=== PATIENT | male | born 1945 | race Caucasian/White ===

== ENCOUNTER → 2023-02-27 | Outpatient (CLI) | payer MEDICARE, OTHER ==
[~2023-02-27] MED LIST: CATHETER FLUSH 10 ML SYR IVP PRN; REGADENOSON 0.4 MG/5 ML SYR (LEXISCAN) IV ONE
[2023-02-27 13:16] VITALS: BP 152/75
--- NOTE | 2023-02-27 14:51 | Cardiology Stress Test Report ---
Stress Test Report Date of Procedure/Referring: Date of Procedure: Feb 27, 2023 PCP Doug Cerna DO Admitting Physician Admitting Physician: Attending Physician: Marta Cleveland MD Indications: CAD Baseline Heart Rate: 69 Baseline Blood Pressure: Blood Pressure Systolic: 152 Blood Pressure Diastolic: 75 Baseline Vitals Vital Signs Date Time Temp Pulse Resp B/P (MAP) Pulse Ox O2 Delivery O2 Flow Rate FiO2 02/27/23 13:16 69 152/75 (100) 98 Baseline EKG: Baseline EKG: RBBB Summary After explaining the procedure to the patient, he signed a consent and then brought to the stress nuclear laboratory. Patient received 0.4 mg Lexiscan for stress test, ECG, heart rate and blood pressure were monitored continuously. Resting and stress dose of radio tracer were injected, imaging was acquired and reviewed in short axis, horizontal long axis and vertical long axis views. TID: 1.07 SSS: 11 SDS: 6 EF: 64 Patient tolerated Lexiscan well Baseline right bundle branch block persisted during test Reversible ischemia involving the mid to apical inferolateral and anterolateral wall Normal left ventricular size, ejection fraction 64% Copy Copies To 1: DOUG CERNA BASHAR J MD Feb 27, 2023 14:51
== END ==
LOC: CARD 11:02
PROVIDERS: ATTEND Internal Medicine Cardiovascular Disease
DX: I25.10 Atherosclerotic heart disease of native coronary artery without angina pectoris (principal); I10 Essential (primary) hypertension
CPT/HCPCS: 78452; 93017; A9502; C8929; 93306

== ENCOUNTER 2023-03-13 07:00 | Day surgery (SDC) | payer MEDICARE, OTHER ==
[2023-03-13] VITALS (21 sets, daily range): BP systolic 137–186; BP diastolic 66–93
[~2023-03-13] VITALS: Ht 175.3 cm; Wt 70.0 kg
[2023-03-13] MEDS ORDERED: NS IV 1000 ML 1,000 ML IV SCH ×2 (07:15→10:15)
[2023-03-13] MEDS ORDERED: LIDOCAINE 1% INJ 20 ML VIAL ONE (07:15)
[2023-03-13] MEDS ORDERED: HEParin (CATH LAB) 2,000 ML IV ONE (07:15)
[2023-03-13] MEDS ORDERED: NS IV 1000 ML 1,000 ML ONE (07:15)
[2023-03-13 07:40] LABS: HEMATOCRIT 46 % (40-54); HEMOGLOBIN 15.5 g/dL (13.3-17.7); MEAN CORPUSCULAR HEMOGLOBIN 30 pg (25-34); MEAN CORPUSCULAR HGB CONC 34 g/dL (32-36); MEAN CORPUSCULAR VOLUME 88 fL (80-99); MEAN PLATELET VOLUME 9.6 fL (9.0-12.2); PLATELET COUNT 214 10^3/uL (130-400); WHITE BLOOD COUNT 6.2 10^3/uL (4.3-11.0)
--- NOTE | 2023-03-13 07:44 | Diagnostic Imaging Report ---
EXAMINATION: Chest radiograph TECHNIQUE: Portable AP view of the chest obtained HISTORY: Chest pain COMPARISON: None available. FINDINGS: Normal lung volume. No focal consolidation. No pleural effusion or pneumothorax. Cardiac silhouette and pulmonary vascularity are within normal limits. No acute osseous findings. IMPRESSION: No acute chest findings. Dictated by: Dictated on workstation # [id number]
[2023-03-13 07:51] LABS: BACTERIA,URINE NEGATIVE /HPF; BILIRUBIN,URINE NEGATIVE (NEGATIVE); CLARITY,URINE CLEAR; COLOR,URINE YELLOW; GLUCOSE, URINE (UA) 3+ (NEGATIVE); KETONES,URINE NEGATIVE (NEGATIVE); LEUKOCYTE ESTERASE ,URINE NEGATIVE (NEGATIVE); NITRITE,URINE NEGATIVE (NEGATIVE); PH,URINE 5.5 (5-9); PROTEIN,URINE 1+ (NEGATIVE)
[2023-03-13 07:58] LABS: INR 0.9 (0.8-1.4); PROTHROMBIN TIME PATIENT 12.5 SEC (12.2-14.7)
[2023-03-13 08:00] LABS: BILIRUBIN,TOTAL 0.5 MG/DL (0.1-1.0); CREATININE SERUM 0.86 MG/DL (0.60-1.30); POTASSIUM 3.8 MMOL/L (3.6-5.0); TOTAL PROTEIN 6.7 GM/DL (6.4-8.2)
[2023-03-13] MEDS ORDERED: LOSA25TA41 PO (08:20)
[2023-03-13] MEDS ORDERED: SILD25TA9 PO (08:20)
[2023-03-13] MEDS ORDERED: EMPA25TA PO (08:20)
[2023-03-13] MEDS ORDERED: TERB250T88 PO (08:20)
[2023-03-13] MEDS ORDERED: HYDR-700 PO (08:20)
[2023-03-13] MEDS ORDERED: ATOR10TA66 PO (08:20)
[2023-03-13] MEDS ORDERED: AMLO-250 PO (08:20)
[2023-03-13] MEDS ORDERED: MIDAZOLAM INJ 5 MG/5 ML VIAL ONE (08:31)
[2023-03-13] MEDS ORDERED: fentaNYL INJECTION 100 MCG/2 ML VIAL ONE ×2 (08:31→09:35)
--- NOTE | 2023-03-13 08:37 | Cardiac Procedure Note-CS/ASA ---
Pre-Procedure Note Pre-Op Procedure Note Date of Available H&P: Feb 25, 2023 Date H&P Reviewed: Mar 13, 2023 Time H&P Reviewed: 08:36 History & Physical: H&P Reviewed, Patient Examed, No changes noted Pre-Operative Diagnosis: CAD, PAD Moderate Sedation PreProcedure Time 08:36 ASA Score 3 Airway Lungs Heart ASA score ASA 1: a normal healthy patient ASA 2: a patient with a mild systemic disease (mid diabetes, controlled hypertension, obesity ASA 3: a patient with a severe systemic disease that limits activity (angina, COPD, prior Myocardial infarction) ASA 4: a patient with an incapacitating disease that is a constant threat to l gary (CHF, renal failure) ASA 5: a moribund patient not expected to survive 24 hrs. (ruptured aneurysm) ASA 6: a declared brain- patient whose organs are being harvested. For emergent operations, add the letter E after the classification Mallampati Classification Grade 3 Sedation Plan Analgesia, Amnesia, Plan communicated to team members, Discussed options with patient/fam, Discussed risks with patient/fam The patient is an appropriate candidate to undergo the planned procedure, sedation, and anesthesia. The patient immediately re-assessed prior to indication. JOE MONTILLA MD Mar 13, 2023 08:36
[2023-03-13] MEDS ORDERED: HEParin 1000 UNIT/ML (10ML VIAL) FOR BOLUS ONE (09:14)
[2023-03-13] MEDS ORDERED: MIDAZOLAM INJ 2 MG/2 ML VIAL ONE (09:38)
[2023-03-13] MEDS ORDERED: CLOPIDOGREL 300 MG TABLET PO ONE (10:12)
[2023-03-13] MEDS ORDERED: ASPIRIN 325 MG TABLET ONE (10:12)
[2023-03-13] MEDS ORDERED: PATIENT MAY USE OWN MEDS, ALL PO SCH (10:15)
[2023-03-13] MEDS ORDERED: PANT40TA2 PO (10:18)
[2023-03-13] MEDS ORDERED: CLOP75TA28 PO (10:18)
[2023-03-13] MEDS ORDERED: ASPI-1238 PO (10:18)
--- NOTE | 2023-03-13 10:19 | Discharge Inst-Post CATH ---
Discharge Inst-CATH/EP Problems Reviewed?: Yes Post Cardiac Cath/EP D/C Inst Follow Up/Plan Appointment with Dr. Cleveland's office in 2 to 4 weeks <b>CARDIAC CATH/EP PROCEDURE DISCHARGE INSTRUCTIONS</b> ACTIVITY * Go Home directly and rest. * Limit activity of the leg (or wrist if it was used) for 7 days including aer obics, swimming, jogging, bicycling, etc. * Restrict stair-climbing for 7 days if possible, if not, climb up with your non-cath leg, then bring together on the same step. * Avoid lifting, pushing, pulling or excessive movement of the affected extremi ty for 7 days. * Customary sexual activity may be resumed after 2 days-use caution not to use a position that strains or causes pain to the affected extremity. * No driving for 24 hours. * NO SMOKING. * Avoid straining for bowel movements for 7 days. * Gentle walking on level ground is allowed. * Returning to work will depend on the type of procedure and the results. Your doctor will discuss this with you. CALL YOUR DOCTOR FOR ANY OF THE FOLLOWING: *If bleeding from the puncture site occurs- Apply gentle pressure to site with clean cloth and call your doctor or EMS. * If a knot or lump forms under the skin, increases in size, or causes pain. * If bruising appears to be worsening or moving further down your leg instead of disappearing. * Temperature above 101 F. CARE OF YOUR GROIN INCISION; * Bruising or purple discoloration of the skin near the puncture site is common. * You may shower only, no bathtub bathing for 5 days. Be careful to avoid slipping as your leg may feel stiff. * If a closure device was used on your femoral artery, please see the attached guide regarding care of the device and your leg. * Leave dressing on FOR 24 hours. CARE OF YOUR WRIST INCISION; * Bruising or purple discoloration of the skin near the puncture site is common. * You may shower. * DO NOT submerge wrist. * Leave dressing on FOR 24 hours. JOE CLEVELAND MD Mar 13, 2023 10:19
--- NOTE | 2023-03-13 10:34 | Cardiac Cath Report ---
Cardiac Cath Report Physician (s)/Properties Supervisor (s) Physician JOE MONTILLA MD Pre-Procedure Diagnosis Pre-Procedure Diagnosis: CAD, PAD Post-Procedure Note Procedure Start Date: Mar 13, 2023 Name of Procedure: Left heart catheterization Bilateral lower extremities runoff Abdominal aortogram Third order Additional imaging x1 Stenting to the left SFA Findings/Procedure Note PROCEDURE NOTE: 77-year-old gentleman with history of hypertension, hyperlipidemia, has been having increasing claudication with abnormal SHAWN, he was scheduled for peripheral angiogram. Had an abnormal stress test with anterior lateral ischemia, I decided to proceed with coronary angiogram with a peripheral angiogram. After explaining the procedure to the patient, all pros and cons were explained, all questions were answered. The patient signed the consent and then he was placed in the cardiac catheterization laboratory. Groin was prepped in SL fashion local anesthesia was used. Sheath placed in the right femoral artery. Isaiah' right and left catheter were used to access the coronary system. Isaiah right prolapsed to the left ventricular cavity, pressure was measured no left ventriculogram was done. Pullback LV to aorta was done. The Isaiah right catheter was placed at the left common femoral artery and runoff to the left leg was done then I noticed there was a total occlusion at the left ostial SFA. I advanced a Storq wire then straight catheter to the left common femoral artery and did runoff to the left leg then pulled back the straight catheter to the right common iliac artery and did angiogram to the bifurcation due to the heavy calcification at the bifurcation and having difficulty advancing the catheter through the bifurcation. I reintroduced Isaiah right catheter and placed the wire then exchanged the sheath and used a 7 Andorran 45 sheath. Using 5000 unit of heparin bolus Command 18 ST was used and advanced through the lesion without difficulties then I advanced mini 18 to the popliteal artery and remove the wire and did injection through the catheter and the mini 18 showing the popliteal artery is normal. Reintroduce command wire and remove the mini 18 I proceeded with balloon angioplasty using [place] 6 x 150 with multiple inflation. Proceeded with deployment of 3 stents in the left SFA distally Supera 6 x 150 overlapping with the proximal Supera 6 x 120 and overlapping with ostial SFA absolute Pro 8 x 80 All the stents were postdilated with 6 x 150 balloon. Angiogram showed excellent results. I performed DSA imaging to the trifurcation. Sheath was exchanged again to short 7 Andorran sheath Pigtail catheter was advanced to the abdominal aorta and I performed abdominal aortogram due to the heavy calcification noted in the lower abdominal aorta and the bifurcation. Pigtail catheter was removed and runoff to the right lower extremity was done through the 7 Andorran sheath. At the end of the procedure the sheath was removed. Closure device FINDINGS: Hemodynamics LV 139/12, end-diastolic pressure of 12 Aorta 142/52 mean of 85 ANATOMY: Left Main is calcified with no obstructive disease Left Anterior Descending had mild calcification with no obstructive disease Left Circumflex is moderate in size, ostial first obtuse marginal branch has 80% stenosis, the artery is a hairline artery very small artery not amendable to intervention, the circumflex artery is a dominant artery Right Coronary Artery is nondominant artery with a long tubular lesion 50 to 60% stenosis at the mid right coronary artery, the artery is about 2 mm in diameter. LV Gram was not done, pressure was measured Abdominal aortogram: Abdominal aorta has mild to moderate atherosclerotic plaques. Mild aneurysmal dilatation infrarenally, Right and left renal arteries are normal with no obstructive disease OTF and SMA are normal with no obstructive disease Bifurcation is normal with heavy calcification at the common iliac artery nonobstructive disease Left lower extremity Left common iliac and common femoral artery had calcification with no obstructive disease Left SFA is totally occluded at the ostium reconstructed distally status post complex intervention with deployment of 3 stents in the SFA with excellent results, 0% residual stenosis Left popliteal artery is normal Anterior tibial artery is normal Posterior tibial artery is occluded chronically Left peroneal artery is patent Right lower extremity Right common iliac and common femoral artery had calcification with no obstructive disease Right SFA is totally occluded at the ostium reconstructed at the popliteal level At the bifurcation of the anterior tibial artery and peroneal artery are patent and the posterior tibial artery appeared to be occluded CONCLUSION: Heavily calcified coronary system with severe stenosis at the ostium of the first obtuse marginal branch that is very small artery not amendable to intervention, moderate stenosis at the mid nondominant right coronary artery about 2 mm in diameter. Nonobstructive disease Heavily calcified iliac arteries with mild disease nonobstructive disease Mild aneurysmal dilatation in the infrarenal abdominal aorta, calcified abdominal aorta Normal renal artery Total occlusion of the left SFA with successful intervention with deployment of 3 stents. Distally Supera 6 x 150 followed by Supera 6 x 120 and at the ostium of the SFA absolute Pro 8 x 80 with excellent results. Total occlusion of the right SFA reconstructed at the popliteal artery will be staged for intervention at a later point DISCUSSION AND RECOMMENDATION: Patient was loaded with aspirin and Plavix, we will continue maximizing medical therapy. Anesthesia Type: Conscious Sedation Estimated blood loss (mL): 30 ml Contrast Amount: 110 ml Total Radiation Dose: 599 mGY Post-Procedure Diagnosis Post-operative diagnosis: Claudication Peripheral arterial disease Hypertension Hyperlipidemia JOE MONTILLA MD Mar 13, 2023 10:34
[2023-03-13] MEDS ORDERED: ATOR20TA49 PO (10:35)
[2023-03-13] MEDS ORDERED: NON-FORMULARY MEDICATION 1 EA EA (Empagliflozin (Jardiance) 25 MG) PO SCH (21:00)
[2023-03-13] MEDS ORDERED: amLODIPine 5 MG TABLET PO SCH (21:00)
[2023-03-13] MEDS ORDERED: LOSARTAN 25 MG TABLET PO SCH (21:00)
[2023-03-13] MEDS ORDERED: EMPAGLIFLOZIN 10 MG TABLET PO SCH (21:00)
[2023-03-14] MEDS ORDERED: CLOPIDOGREL 75 MG TABLET PO SCH (09:00)
[2023-03-14] MEDS ORDERED: ASPIRIN enteric coated 81MG TABLET PO SCH (09:00)
== END 2023-03-13 16:40 | disposition home or self-care (01) ==
LOC: CATH 07:00 → CSD 10:48 → CATH 16:40
PROVIDERS: ATTEND Internal Medicine Cardiovascular Disease
DX: I25.10 Atherosclerotic heart disease of native coronary artery without angina pectoris (principal); I70.203 Unspecified atherosclerosis of native arteries of extremities, bilateral legs; I71.43 Infrarenal abdominal aortic aneurysm, without rupture; I70.0 Atherosclerosis of aorta; I70.92 Chronic total occlusion of artery of the extremities; I10 Essential (primary) hypertension; E11.9 Type 2 diabetes mellitus without complications; E78.2 Mixed hyperlipidemia; I65.23 Occlusion and stenosis of bilateral carotid arteries; Z79.899 Other long term (current) drug therapy; Z79.84 Long term (current) use of oral hypoglycemic drugs; Z28.310 Unvaccinated for COVID-19; Z87.891 Personal history of nicotine dependence
CPT/HCPCS: 37226; 71045; 80053; 80061; 81000; 85027; 85610; 85730; 87081; 93005; 93458; C1725; C1760; C1769 ×2; C1876 ×3; C1887 ×3; C1894; 36415

== ENCOUNTER 2023-03-27 06:46 | Day surgery (SDC) | payer MEDICARE, OTHER ==
[2023-03-27] VITALS (10 sets, daily range): BP systolic 130–179; BP diastolic 58–86
[~2023-03-27] VITALS: Ht 175 cm; Wt 70.1 kg
[~2023-03-27 06:46] MED LIST changes: +AMLO-250 PO; +ASPI-1238 PO; +ATOR10TA66 PO; +ATOR20TA49 PO; -CATHETER FLUSH 10 ML SYR IVP PRN; +CLOP75TA28 PO; +EMPA25TA PO; +HYDR-700 PO; +LOSA25TA41 PO; +PANT40TA2 PO; -REGADENOSON 0.4 MG/5 ML SYR (LEXISCAN) IV ONE; +SILD25TA9 PO; +TERB250T88 PO
[2023-03-27] MEDS ORDERED: LIDOCAINE 1% INJ 20 ML VIAL ONE (07:09)
[2023-03-27] MEDS ORDERED: HEParin (CATH LAB) 2,000 ML IV ONE (07:09)
[2023-03-27] MEDS ORDERED: NS IV 1000 ML 1,000 ML ONE (07:09)
[2023-03-27] MEDS ORDERED: NS IV 1000 ML 1,000 ML IV SCH (07:15)
[2023-03-27 07:39] LABS: HEMATOCRIT 45 % (40-54); HEMOGLOBIN 15.6 g/dL (13.3-17.7); MEAN CORPUSCULAR HEMOGLOBIN 30 pg (25-34); MEAN CORPUSCULAR HGB CONC 34 g/dL (32-36); MEAN CORPUSCULAR VOLUME 88 fL (80-99); MEAN PLATELET VOLUME 9.1 fL (9.0-12.2); PLATELET COUNT 283 10^3/uL (130-400); WHITE BLOOD COUNT 5.8 10^3/uL (4.3-11.0)
[2023-03-27 07:54] LABS: ALBUMIN 3.9 GM/DL (3.2-4.5)
[2023-03-27 07:55] LABS: CALCIUM 9.1 MG/DL (8.5-10.1)
[2023-03-27 07:56] LABS: PROTHROMBIN TIME PATIENT 13.1 SEC (12.2-14.7); TOTAL PROTEIN 6.7 GM/DL (6.4-8.2)
[2023-03-27 07:58] LABS: BILIRUBIN,TOTAL 0.4 MG/DL (0.1-1.0)
[2023-03-27 08:00] LABS: CREATININE SERUM 0.87 MG/DL (0.60-1.30)
[2023-03-27] MEDS ORDERED: HYDR-700 PO (08:04)
[2023-03-27] MEDS ORDERED: PANT40TA52 PO (08:04)
[2023-03-27] MEDS ORDERED: DICL75TA2 PO (08:04)
[2023-03-27] MEDS ORDERED: ASPI-1238 PO (08:04)
[2023-03-27] MEDS ORDERED: CLOP75TA28 PO (08:04)
[2023-03-27] MEDS ORDERED: ATOR20TA66 PO (08:04)
[2023-03-27] MEDS ORDERED: fentaNYL INJECTION 100 MCG/2 ML VIAL ONE (09:00)
[2023-03-27] MEDS ORDERED: MIDAZOLAM INJ 5 MG/5 ML VIAL ONE (09:00)
--- NOTE | 2023-03-27 09:12 | Cardiac Procedure Note-CS/ASA ---
Pre-Procedure Note Pre-Op Procedure Note Date of Available H&P: Feb 27, 2023 Date H&P Reviewed: Mar 27, 2023 Time H&P Reviewed: 09:12 History & Physical: H&P Reviewed, Patient Examed, No changes noted Pre-Operative Diagnosis: CAD, PAD Moderate Sedation PreProcedure Time 09:12 ASA Score 3 Airway Lungs Heart ASA score ASA 1: a normal healthy patient ASA 2: a patient with a mild systemic disease (mid diabetes, controlled hypertension, obesity ASA 3: a patient with a severe systemic disease that limits activity (angina, COPD, prior Myocardial infarction) ASA 4: a patient with an incapacitating disease that is a constant threat to life (CHF, renal failure) ASA 5: a moribund patient not expected to survive 24 hrs. (ruptured aneurysm) ASA 6: a declared brain- patient whose organs are being harvested. For emergent operations, add the letter E after the classification Mallampati Classification Grade 3 Sedation Plan Analgesia, Amnesia, Plan communicated to team members, Discussed options with patient/fam, Discussed risks with patient/fam The patient is an appropriate candidate to undergo the planned procedure, sedation, and anesthesia. The patient immediately re-assessed prior to indication. JOE MONTILLA MD Mar 27, 2023 09:12
[2023-03-27] MEDS ORDERED: HEParin 1000 UNIT/ML (10ML VIAL) FOR BOLUS ONE (09:39)
[2023-03-27] MEDS ORDERED: NITRO DRIP 25000 MCG/D5W 0 ML IV ONE (09:39)
--- NOTE | 2023-03-27 10:40 | Peripheral Report ---
Peripheral Report Physician (s)/Translation Director (s) Physician JOE MONTILLA MD Pre-Procedure Diagnosis Pre-Procedure Diagnosis: CAD, PAD Post-Procedure Note Procedure Start Date: Mar 27, 2023 Name of Procedure: Bilateral lower extremities runoff Third order Findings/Procedure Note PROCEDURE NOTE: 78 years old gentleman with severe peripheral arterial disease, had total occlusion of the left SFA and right SFA, postintervention had significant pain in his left leg. He was scheduled for intervention on the right leg. I decided to evaluate the left leg and evaluate the patency of the stents. After explaining the procedure to the patient, all pros and cons were explained, all questions were answered. The patient signed the consent and then he was placed on the cardiac catheterization laboratory. The patient was placed on the cardiac catheterization laboratory. Groin was prepped SL fashion local anesthesia was used. Sheath placed in the left femoral artery, runoff to the left lower extremity was done. Using a rim catheter I placed it at the bifurcation and did runoff to the right leg then exchanged the catheter over a long wire and used 7 Mongolian 45 cm sheath. I was able to cross over easily with command 18 ST. Advanced the mini 18 over the wire down to the popliteal artery And manual injection it appears that it the wire went in a false lumen creating a dissection. I pulled back the mini and attempted to redirect without success, I used multiple different wires including command 14, connected to 50, connect flex. It continues to be in the false lumen. The catheter was removed, did final injection and it appeared to have a good flow through the collaterals. Did not affect the initial vessel. Sheath was removed and closure device deployed FINDINGS: Right lower extremity, total occlusion of the SFA at a long segment starting from the ostium to the popliteal artery. Failed intervention with creating false lumen with dissection. After multiple attempts I decided to abort. We will consider attempting through pedal access retrograde access. Left lower extremity: Patent SFA stents with good flow down to the trifurcation. CONCLUSIONS: Patent stents in the left SFA with good flow down to the trifurcation Failed attempt for intervention on total occluded right SFA after multiple attempt I decided to abort and consider pedal access DISCUSSION AND RECOMMENDATIONS: Continue to maximize medical therapy. Anesthesia Type: Conscious Sedation Estimated blood loss (mL): 30 ml Contrast Amount: 60 ml Total Radiation Dose: 111 mGy Post-Procedure Diagnosis Post-operative diagnosis: Claudication Peripheral arterial disease Hypertension Hyperlipidemia JOE MONTILLA MD Mar 27, 2023 10:40
[2023-03-27] MEDS ORDERED: SILDENAFIL CITRATE 25 MG PO PRN (10:45)
[2023-03-27] MEDS ORDERED: PATIENT MAY USE OWN MEDS, ALL PO SCH (10:45)
[2023-03-27] MEDS ORDERED: DICLOFENAC 75 MG TAB PO PRN (10:45)
[2023-03-27] MEDS: NS IV 1000 ML 1,000 ML IV SCH (14:01)
[2023-03-27] MEDS ORDERED: JARDIANCE 25 MG TAB PO SCH (21:00)
[2023-03-27] MEDS ORDERED: CLOPIDOGREL 75 MG TABLET PO SCH (21:00)
[2023-03-27] MEDS ORDERED: NON-FORMULARY MEDICATION 1 EA EA (Empagliflozin (Jardiance) 25 MG) PO SCH (21:00)
[2023-03-27] MEDS ORDERED: TERBINAFINE HCL 250 MG PO SCH (21:00)
[2023-03-27] MEDS ORDERED: EMPAGLIFLOZIN 10 MG TABLET PO SCH (21:00)
[2023-03-27] MEDS ORDERED: hydrOXYzine 25 MG CAPSULE PO SCH (21:00)
[2023-03-27] MEDS ORDERED: PANTOPRAZOLE 40 MG TABLET PO SCH (21:00)
[2023-03-27] MEDS ORDERED: amLODIPine 5 MG TABLET PO SCH (21:00)
[2023-03-27] MEDS ORDERED: LOSARTAN 25 MG TABLET PO SCH (21:00)
[2023-03-27] MEDS ORDERED: ASPIRIN enteric coated 81MG TABLET PO SCH (21:00)
[2023-03-28] VITALS: BP 169/73
[2023-03-28] MEDS: NS IV 1000 ML 1,000 ML IV SCH ×2 (00:05→07:52)
[2023-03-28 04:00] VITALS: BP 141/59
--- NOTE | 2023-03-28 08:23 | Cardiology Progress Note ---
Subjective Date Seen by Provider: Mar 28, 2023 Time Seen by Provider: 08:22 Subjective/Events-last exam Patient was seen at bedside, laying down comfortably, site is healing well Objective-Cardiology Exam Last Set of Vital Signs Vital Signs 03/27/23 03/27/23 03/28/23 03/28/23 07:29 11:39 04:00 07:00 Temp 36.5 Pulse 71 Resp 13 B/P (MAP) 141/59 (86) Pulse Ox 94 O2 Delivery Room Air I&O Intake and Output 03/28/23 00:00 Intake Total 1000 ml Balance 1000 ml IV Total 1000 ml General: Alert, Oriented X3, Cooperative HEENT: Atraumatic, PERRLA Neck: Supple, No JVD, No Thyromegaly Lungs: Clear to Auscultation, Normal Air Movement Heart: Regular Rate, Normal S1, Normal S2, No Murmurs Abdomen: Normal Bowel Sounds, Soft, No Tenderness, No Hepatosplenomegaly, No Masses Extremities: No Clubbing, No Cyanosis, No Edema, Normal Pulses, No Tenderness/Swelling Skin: No Rashes, No Breakdown, No Significant Lesion Neuro: Normal Gait, Normal Speech, Strength at 5/5 X4 Ext, Normal Tone, Sensation Intact Psych/Mental Status: Mental Status NL, Mood NL A/P-Cardiology Admission Diagnosis Peripheral arterial disease Hypertension Hyperlipidemia Coronary artery disease Assessment/Plan Peripheral arterial disease, status post stenting to the left SFA Failed intervention on the right SFA Planning for pedal access, will refer to a tertiary care center Hypertension, monitor blood pressure Hyperlipidemia, monitor lipids Coronary artery disease clinically stable JOE MONTILLA MD Mar 28, 2023 08:23
--- NOTE | 2023-03-28 08:24 | Discharge Inst-Post CATH ---
Discharge Inst-CATH/EP Problems Reviewed?: Yes Post Cardiac Cath/EP D/C Inst Follow Up/Plan Appointment with Dr. Cleveland's office in 2 to 4 weeks <b>CARDIAC CATH/EP PROCEDURE DISCHARGE INSTRUCTIONS</b> ACTIVITY * Go Home directly and rest. * Limit activity of the leg (or wrist if it was used) for 7 days including aer obics, swimming, jogging, bicycling, etc. * Restrict stair-climbing for 7 days if possible, if not, climb up with your non-cath leg, then bring together on the same step. * Avoid lifting, pushing, pulling or excessive movement of the affected extremi ty for 7 days. * Customary sexual activity may be resumed after 2 days-use caution not to use a position that strains or causes pain to the affected extremity. * No driving for 24 hours. * NO SMOKING. * Avoid straining for bowel movements for 7 days. * Gentle walking on level ground is allowed. * Returning to work will depend on the type of procedure and the results. Your doctor will discuss this with you. CALL YOUR DOCTOR FOR ANY OF THE FOLLOWING: *If bleeding from the puncture site occurs- Apply gentle pressure to site with clean cloth and call your doctor or EMS. * If a knot or lump forms under the skin, increases in size, or causes pain. * If bruising appears to be worsening or moving further down your leg instead of disappearing. * Temperature above 101 F. CARE OF YOUR GROIN INCISION; * Bruising or purple discoloration of the skin near the puncture site is common. * You may shower only, no bathtub bathing for 5 days. Be careful to avoid slipping as your leg may feel stiff. * If a closure device was used on your femoral artery, please see the attached guide regarding care of the device and your leg. * Leave dressing on FOR 24 hours. CARE OF YOUR WRIST INCISION; * Bruising or purple discoloration of the skin near the puncture site is common. * You may shower. * DO NOT submerge wrist. * Leave dressing on FOR 24 hours. JOE CLEVELAND MD Mar 28, 2023 08:24
== END 2023-03-28 09:58 | disposition home or self-care (01) ==
LOC: CATH 06:46 → CSD 11:17 → CATH 03-28 09:58
PROVIDERS: ATTEND Internal Medicine Cardiovascular Disease
DX: I70.92 Chronic total occlusion of artery of the extremities (principal); I73.9 Peripheral vascular disease, unspecified; I25.10 Atherosclerotic heart disease of native coronary artery without angina pectoris; E78.2 Mixed hyperlipidemia; I10 Essential (primary) hypertension; I65.23 Occlusion and stenosis of bilateral carotid arteries; I45.19 Other right bundle-branch block; Z87.891 Personal history of nicotine dependence; Z79.899 Other long term (current) drug therapy; Z82.49 Family history of ischemic heart disease and other diseases of the circulatory system
CPT/HCPCS: 36247; 75716; 80053; 85027; 85347; 85610; 85730; 87081; 93005; C1760; C1769 ×5; C1887 ×2; C1894 ×2; 36415